=== PATIENT | male | born 1955 | race Caucasian/White ===

== ENCOUNTER 2017-04-13 05:43 | Emergency (ER) | payer OTHER ==
[2017-04-13 07:23] LABS: INR-International Normal Ratio 0.9; Prothrombin Time 12.1 SEC (12.0-14.7)
[2017-04-13 07:38] LABS: ALT (SGPT) 8 U/L (8-55); AST (SGOT) 9 U/L (5-34); Albumin 4.1 g/dL (3.4-4.8); Alkaline Phosphatase 75 U/L (40-150); Anion Gap 12 mmol/L (10-20); BUN (Urea Nitrogen) 10 mg/dL (8.4-25.7); CK (CPK) 23 U/L (30-200); Calc. Creatinine Clearance 0 mL/min (70-130); Calcium 9.7 mg/dL (7.8-10.44); Carbon Dioxide 29 mmol/L (23-31); Chloride 95 mmol/L (98-107); Estimated GFR-MDRD 69; Glucose 403 mg/dL (80-115); Potassium 4.4 mmol/L (3.5-5.1); Protein, Total 7.1 g/dL (5.8-8.1); Sodium 132 mmol/L (136-145)
[2017-04-13 07:51] LABS: CKMB 0.7 ng/mL (0-6.6); Troponin I Less than 0.010 ng/mL (< 0.028)
--- NOTE | 2017-04-13 08:00 | RAD ---
PORTABLE CHEST 1 VIEW: Date: 04/13/17 Time: 0632 hours HISTORY: Chest pain. FINDINGS/IMPRESSION: The heart size is normal. The lungs are well expanded without focal areas of consolidation or pneumot horax. A small right pleural effusion may be present. POS: [facility]
[2017-04-13 08:14] LABS: D-Dimer Test Less than 0.27 *mcg/mL (0.27-0.43)
--- NOTE | 2017-04-13 08:32 | CT ---
PRELIMINARY REPORT/[facility]/EMERGENCY AFTER HOURS PROCEDURE: EXAM: CT Head Without Intravenous Contrast CLINICAL HISTORY: 61 years old, male; Injury or trauma; Fall; Additional info: 61 yo m presents to ed S/P fall. Pt stat es that he got up from bed and felt that his blood sugar was low as he was feeling dizzy then passed out. States that he fell back and hit back of head on bunk bed. Reports brief episode of chest pain prior to falling. Blood sugar was checked and it was in 170s. Reports pain to back of head. Denies abdomina l pain. Reports nausea, denies vomiting. Pt is chest pain free now. No smoking. No ETOH in 3-4 years. TECHNIQUE: Axial computed tomography images of the head/brain without intravenous contrast. COMPARISON: No relevant prior studies available. FINDINGS: Brain: Presumed right retrocerebellar arachnoid cyst measuring 4 cm. Mild volume loss No hemorrhage. Mild white matter disease. No edema. Asymmetric left basal ganglia calcifications Ventricles: Unremarkable. No ventriculomegaly. Bones/joints: Unremarkable. No acute fracture. Soft tissues: Unremarkable. Sinuses: Opacified left frontal sinus and partial opacification of the left ethmoid air cells Mastoid air cells: Unremarkable as visualized. No mastoid effusion. IMPRESSION: Left-sided sinusitis as described Incidental retrocerebellar arachnoid cyst No intracranial hemorrhage.Please see discussion above. Thank you for allowing us to participate in the care of your patient. Dictated and Authenticated by: Jorge Talavera MD 04/13/2017 6:42 AM Central Time ([place] & [place]) FINAL REPORT CT HEAD NONCONTRAST: Date: 04-13-17 Performed on emergency basis at 0632. History: Fall. Head injury. FINDINGS: The findings agree with the preliminary report by Dr. Talavera from [facility]. No acute intrac ranial abnormalities are demonstrated on noncontrast CT head. Left ethmoid mucosal thickening is appa rent. Dystrophic calcification is apparent within the left basal ganglia. Fluid density lesion at the torcula herophili is favored to represent an arachnoid cyst. Code QA POS: [facility]
[2017-04-13 08:47] LABS: Bilirubin Negative (Negative); Blood, Urine Negative (Negative); Clarity CLEAR (Clear); Glucose, Urine (Dipstick) >=1000 mg/dL (Negative); Leukocyte Negative (Negative); Nitrite Negative (Negative); Protein, Urine (Dipstick) Negative (Neg-Trace); Specific Gravity, Urine 1.025 (1.002-1.036)
== END 2017-04-13 09:22 ==
LOC: EEVIPCON 05:43 → ERS 05:43
DX: S09.90XA Unspecified injury of head, initial encounter (principal); R55 Syncope and collapse; E11.9 Type 2 diabetes mellitus without complications; E78.5 Hyperlipidemia, unspecified; I10 Essential (primary) hypertension; W19.XXXA Unspecified fall, initial encounter
CPT/HCPCS: 36416; 70450; 71045; 80053; 81003; 82553; 84484; 85379; 85610; 93005; 96360